=== PATIENT | female | born 1990 | race Two or more races ===

== ENCOUNTER 2017-11-11 09:08 | Emergency (ER) | payer OTHER ==
[~2017-11-11] VITALS: Ht 165.1 cm; Wt 100.0 kg
[2017-11-11] MEDS ORDERED: IBUPROFEN 800 MG TABLET PO ONE (10:30)
[2017-11-11 11:10] VITALS: BP 125/89
== END 2017-11-11 11:10 | disposition home or self-care (01) ==
LOC: EMS 09:09
DX: M25.561 Pain in right knee (principal)
CPT/HCPCS: 29505; 99284

== ENCOUNTER 2019-10-20 13:14 | Emergency (ER) | payer MEDICAID, OTHER ==
[~2019-10-20] VITALS: Ht 165.1 cm; Wt 95.5 kg
[2019-10-20 13:19] VITALS: BP 119/68
== END 2019-10-20 13:58 | disposition home or self-care (01) ==
LOC: EMS 13:24
DX: U07.1 COVID-19 (principal)
CPT/HCPCS: 99283; U0003

== ENCOUNTER 2021-11-27 16:09 | Emergency (ER) | payer MEDICAID, OTHER, SELFPAY ==
[~2021-11-27] VITALS: Ht 165.1 cm; Wt 109.1 kg
[2021-11-27] MEDS ORDERED: ACETAMINOPHEN/CODEINE 300-30 MG TABLET PO ONE (16:30)
[2021-11-27] MEDS ORDERED: IBUPROFEN 600 MG TABLET PO ONE (16:30)
[2021-11-27 16:36] VITALS: BP 130/80
[2021-11-27] MEDS ORDERED: ACET-2080 PO (17:58)
[2021-11-27] MEDS ORDERED: IBUP-1554 PO (17:58)
== END 2021-11-27 18:58 | disposition home or self-care (01) ==
LOC: EMS 16:11
DX: S92.351A Displaced fracture of fifth metatarsal bone, right foot, initial encounter for closed fracture (principal); W18.40XA Slipping, tripping and stumbling without falling, unspecified, initial encounter; Y93.89 Activity, other specified; Y92.89 Other specified places as the place of occurrence of the external cause; Y99.8 Other external cause status
CPT/HCPCS: 29515; 99284; 73610-TC; 73630-TC; Z7502; Z7610